=== PATIENT | female | born 1965 | race Caucasian/White ===

== ENCOUNTER 2018-02-03 06:10 | Day surgery (SDC) | payer OTHER ==
[2018-02-02 13:39] VITALS: BMI 23.3
[2018-02-03] MEDS ORDERED: MIDAZOLAM HCL 2 MG/2 ML SINGLE DOSE VIAL ONE (07:34)
[2018-02-03] MEDS ORDERED: SUCCINYLCHOLINE CHLORIDE 200 MG/10 ML VIAL ONE (07:37)
[2018-02-03] MEDS ORDERED: PROPOFOL 20 ML ONE (07:37)
[2018-02-03] MEDS ORDERED: DEXAMETHASONE SOD PHOSPHATE 4 MG/1 ML VIAL ONE (07:52)
[2018-02-03] MEDS ORDERED: LIDOCAINE HCL/PF 2% SDV 5ML VIAL ONE (07:52)
[2018-02-03] MEDS ORDERED: KETOROLAC TROMETHAMINE 30 MG/1 ML VIAL ONE (07:52)
[2018-02-03] MEDS ORDERED: oxyCODONE HCL 5 MG TABLET PO PRN (08:29)
[2018-02-03] MEDS ORDERED: PROMETHAZINE HCL 25 MG/1 ML VIAL IVPUSH PRN (08:29)
[2018-02-03] MEDS ORDERED: ONDANSETRON 4 MG/2 ML VIAL IVPUSH PRN (08:29)
[2018-02-03] MEDS ORDERED: LACTATED RINGERS SOLUTION 1,000 ML IV SCH (08:30)
--- NOTE | 2018-02-03 14:19 | OP ---
DATE OF OPERATION: 02/03/2018 PREOPERATIVE DIAGNOSIS: Postmenopausal bleeding. POSTOPERATIVE DIAGNOSIS: Postmenopausal bleeding. PROCEDURE: Dilatation and curettage, hysteroscopy. SURGEON: Tom Hodges DO ANESTHESIA: General. DISTENTION MEDIUM IN: 200 mL. DISTENTION MEDIUM OUT: 150 mL. DISTENTION MEDIUM DEFICIT: 50 mL. ESTIMATED BLOOD LOSS: 25 mL. SPECIMENS: Endometrial lining and ECC. COMPLICATIONS: None. FINDINGS: Atrophic female genitalia. No vulvar lesion. No condyloma. No vaginal discharge or inflammation. Uterus 6 to 8 weeks' size, anteverted. No adnexal masses. Urethra nontender. No cystocele. No rectocele. INDICATION AND CONSENT: A 52-year-old female scheduled for D & C, hysteroscopy. History of postmenopausal bleeding. Attempted E & D, hysteroscopy in the office unsuccessful due to cervical stenosis. The risks, benefits, alternatives of the procedure were discussed with patient. She understood and risks of the procedure including but not limited to bleeding, perforation, fluid overload and even the risk of . She wished to proceed and signed consent. PROCEDURE: Patient was taken to the operating room where general anesthesia was administered without difficulty. She was placed in the dorsal lithotomy position with the stirrups. An examination under anesthesia revealed uterus 6 to 8 weeks' size, anteverted. Patient was then prepped and draped in the usual sterile fashion. A weighted speculum was inserted into the posterior aspect of the vagina. A single-tooth tenaculum was used to grasp the anterior lip of the cervix. The uterus was sounded using dilators. Initially as a result of the cervical stenosis the cervix was sequentially dilated to accommodate the sound. The sound revealed uterus was sounded to 5 cm. The cervix was further sequentially dilated to accommodate the hysteroscope which was introduced under direct visualization. The uterus was distended with normal saline. The aforementioned findings were noted. Hysteroscope was then withdrawn and the cervix was further dilated to accommodate curet. The uterus was curettaged in a clockwise fashion until gritty-like sensation was noted in all aspects of the uterus. The endometrial scrapings were sent to Pathology as well as ECC. The tenaculum was then removed from the cervix with excellent hemostasis noted. The patient tolerated the procedure well. Instrument and sponge counts were correct x2. This patient was awakened from general anesthesia and taken to the recovery room in stable condition. Patient will go home after recovering from anesthesia and meeting all criteria for discharge. She was given instructions regarding followup in [address] Hodges's office. DO RANI Cosby/[id number]
[2018-02-03 15:19] VITALS: PULSE 68; TEMP 97.8
[2018-02-03 15:23] VITALS: BP 110/60
--- NOTE | 2018-02-06 11:18 | PATH ---
Surgical Pathology Report Patient Name: REX GRISSOM [facility]. Rec. #: [id number] /Age/Gender: 1965 (Age: 52) / F Account: [id number] Location: [facility] Taken: 02/02/2018 Received: 02/03/2018 Reported: 02/06/2018 Physicians: Tom Hodges DO Specimen(s) Received A: ENDOMETRIAL CURETTINGS B: ENDOCERVICAL CURETTINGS Clinical History Postmenopausal bleeding Final Diagnosis A. ENDOMETRIAL CURETTINGS, DILATION CURETTAGE: NO DEFINITIVE ENDOMETRIAL GLANDS/TISSUE IDENTIFIED. FRAGMENTS OF BENIGN CERVICAL MUCOSA. B. ENDOCERVICAL CURETTINGS, DILATION AND CURETTAGE: SCANT FRAGMENTS OF BENIGN ECTOCERVICAL TISSUE ADMIXED WITH BLOOD. Electronically Signed Ashely Rainey M.D. Gross Description A. Received in formalin labeled "endometrial curettings," is a 0.3 x 0.2 x 0.1 cm aggregate of sal soft tissue fragments. The formalin is filtered and the specimen is entirely submitted in one cassette. B. Received in formalin labeled "endocervical curettings," is a 0.1 x 0.1 x 0.1 cm aggregate of sal soft tissue fragments. The formalin is filtered and the specimen is entirely submitted in one cassette. 02/03/2018 saudi02/03/2018
== END 2018-02-03 12:00 | disposition home or self-care (01) ==
LOC: JASU-SURG 06:10
PROVIDERS: ATTEND Obstetrics & Gynecology
PROC: 0UDB7ZX Extraction of Endometrium, Via Natural or Artificial Opening, Diagnostic (ICD-10-PCS; principal; 2018-02-03 07:30)
PROC: 0UJD8ZZ Inspection of Uterus and Cervix, Via Natural or Artificial Opening Endoscopic (ICD-10-PCS; 2018-02-03 07:30)
DX: N95.0 Postmenopausal bleeding (principal)
CPT/HCPCS: 88305-TC; 94760